=== PATIENT | female | born 1945 | race Caucasian/White ===

== ENCOUNTER → 2016-12-27 | Outpatient (CLI) | payer MEDICARE, OTHER ==
[~2016-12-27] MED LIST: ADALAT CC60 MG PO; CALCIUM + D 6001 TA1 PO; COZAAR 50MG50 MG/TAB PO; MULTIPLE VITAMI1 CAP PO; NORCO 325 MG-7.1 TAB PO; ROXICODONE 55 MG/TAB PO; TYLENOL 500MG500 MG PO; ZOCOR 20MG20 MG PO
== END ==
LOC: MC.RAD 10:19
DX: Z12.31 Encounter for screening mammogram for malignant neoplasm of breast (principal)

== ENCOUNTER → 2018-03-20 | Outpatient (CLI) | payer MEDICARE, OTHER | LOC: MC.RAD 10:29 | DX: Z12.31 Encounter for screening mammogram for malignant neoplasm of breast (principal) ==